=== PATIENT | male | born 1935 | race Caucasian/White ===

== ENCOUNTER 2016-07-09 07:45 | Emergency (ER) | payer OTHER ==
--- NOTE | 2016-07-09 09:37 | EDPHY ---
H & P Stated Complaint: Recent eye surgery and now w/ bleeding - Personal History Current Tetanus/Diphtheria Vaccine: Yes Current Tetanus Diphtheria and Acellular Pertussis (TDAP): Yes Tetanus Vaccine Date: 2005 - Medical/Surgical History Hx Asthma: No Hx Chronic Respiratory Disease: No Hx Diabetes: No Hx Cardiac Disease: Yes Hx Renal Disease: No Hx Cirrhosis: No Hx Alcoholism: No Hx HIV/AIDS: No Hx Splenectomy or Spleen Trauma: No Other PMH: Eye surgery w/ MD [facility] at [facility], CABG, Pacer - Social History Smoking Status: Never smoked HPI/ROS: CHIEF COMPLAINT: Bleeding postoperatively HISTORY OF PRESENT ILLNESS: bilateral blepharoplasty on July 03, [address] Castillo at [facility]. He reports no complaints until 2 days ago when he noted bleeding from the left eyelid. This is primarily anterior eyelid. At 1 point he noted 100 drops of blood at a time. There is no pulsatile flow. There is no visual complaint. No eye pain. No fevers or chills. No headaches or dizziness. He is primarily concerned about the bleeding. The right eye has no complaints. He mailed his physician's office and they informed him that he needs an appointment but does not have 1 at this time. He has no other associated complaints or modifying factors. REVIEW OF SYSTEMS: Ten systems reviewed and are negative unless otherwise noted in the HPI EXAMINATION General Appearance: Alert, no distress Head: normocephalic, atraumatic Eyes: Pupils equal and round. Surgical incisions bilateral eyelids without dehiscence. There is mild venous blood flow in the left inferior eyelid. Mild left conjunctival injection. No hyphema. No abscess. Visual jackson are intact. ENT, Mouth: Mucous membranes moist Neck: Normal inspection, supple, non-tender Respiratory: Lungs are clear to auscultation Cardiovascular: Regular rate and rhythm Neurological: A&O, nonfocal Skin: Warm and dry, no rash Extremities: Nontender, no pedal edema Psychiatric: Mood and affect normal DIFFERENTIAL DIAGNOSES: 1. Postoperative bleeding 2. incisional dehiscence MDM: 09:15 Postoperative bleeding in the left eye. Patient is well-appearing and in no acute distress. There does not appear to be any infection of the incision. Having difficulty viewing the internal suture line. I have put a page out to the surgeon and we are awaiting his call at this time. 09:50 I have re-evaluated the patient, he remains in no acute distress. We are still waiting for the surgeon's group to return our phone call at this time. 10:[address] Castillo regarding the patient's complaints and examination. He informed me that this is an expected postoperative timeline. He informed me that the internal upper eyelid incision has an absorbable suture and that he does not cauterize that, thus there is some bleeding expected. He recommends ice compresses, compress, rest and follow up in the office. He says that he will have his office contact the patient to set up definitive care. The patient and son at bedside are comfortable with this plan. He will be discharged home in stable condition. SUPERVISION: Independent evaluation with phone consultation of surgeon ( Bimal Sutherland) Constitutional: Initial Vital Signs Temperature (C) 36.8 C 07/09/16 07:50 Heart Rate 99 07/09/16 07:50 Respiratory Rate 18 07/09/16 07:50 Blood Pressure 194/119 H 07/09/16 07:50 O2 Sat (%) 97 07/09/16 07:50 O2 Delivery Mode Room Air Allergies/Adverse Reactions: succinylcholine [Succinylcholine] Allergy (Severe, Verified 02/07/12 18:03) Anaphylaxis Home Medications: Medication Instructions Recorded Amiodarone HCl [PACERONE 200 MG 200 mg PO BID 01/20/12 (RX)] Aspirin [Aspirin 81mg (OTC)] 81 mg PO DAILY 01/20/12 Atorvastatin Calcium [Lipitor 20 20 mg PO DAILY 01/20/12 mg (RX)] Carvedilol [Coreg (RX)] 6.25 mg PO BIDMEAL 01/20/12 Furosemide [Lasix 40 MG (RX)] 40 mg PO DAILY 01/20/12 Losartan Potassium [Cozaar 25 mg 25 mg PO DAILY 01/20/12 (RX)] Pharmacy Completed 01/20/2012- See 01/20/12 Note Potassium Chloride 10 meq PO DAILY 01/20/12 Medical Decision Making Other Provider: The patient was evaluated and managed by the physician accounting manager assistant controller. I have reviewed this chart and I agree with the findings and plan of care as documented , as indicated by my signature. I am the secondary supervising physician. ( Neena Hunt) Departure - Departure Disposition: Home, Routine, Self-Care Clinical Impression: Post-op bleeding, Postoperative complication Condition: Good Instructions: Postoperative Bleeding (ED) Additional Instructions: follow-up with surgeon as discussed. Emergency department precautions for worsening bleeding, fever, headache, eye pain. Referrals: NONE *PRIMARY CARE P,. [Primary Care Provider] - As per Instructions
[2016-07-09 09:56] VITALS: O2SAT 96
[2016-07-09 10:22] VITALS: BP 175/119; PULSE 86; RESP 15; TEMP 98.1
== END 2016-07-09 10:25 | disposition home or self-care (01) ==
DX: H59.3 Postprocedural hemorrhage, hematoma, and seroma of eye and adnexa following a procedure (principal); Z79.82 Long term (current) use of aspirin

== ENCOUNTER 2016-09-16 12:11 | Inpatient (IN) | payer OTHER ==
--- NOTE | 2016-09-16 13:29 | EDPHY ---
H & P Stated Complaint: Cough, fever, chills-6weeks ago [facility] Amox-sats 84% Time Seen by Provider: 09/16/16 13:18 HPI/ROS: CHIEF COMPLAINT: Cough, shortness of breath HISTORY OF PRESENT ILLNESS: The patient is a 80-year-old man with a history of CABG in 2011 as well as atrial fib post ablation not on blood thinners who comes to the emergency department complaining of shortness of breath, cough and fever. He states that he has had the symptoms for 2 months but they have significantly worsened over the last 3 days. 6 weeks ago use seen at the urgent care and started on amoxicillin. He had a negative flu swab at the time. He denies having any chest pain or abdominal pain. No vomiting. No diaphoresis. No edema. REVIEW OF SYSTEMS: Constitutional: denies: chills, fever, recent illness, recent injury EENTM: denies: blurred vision, double vision, nose congestion Respiratory: See HPI Cardiac: denies: chest pain, irregular heart rate, lightheadedness, palpitations Gastrointestinal/Abdominal: denies: abdominal pain, diarrhea, nausea, vomiting, blood streaked stools Genitourinary: denies: dysuria, frequency, hematuria, pain Musculoskeletal: denies: joint pain, muscle pain Skin: denies: lesions, rash, jaundice, bruising Neurological: denies: headache, numbness, paresthesia, tingling, dizziness, weakness Hematologic/Lymphatic: denies: blood clots, easy bleeding, easy bruising Immunologic/allergic: denies: HIV/AIDS, transplant EXAM: GENERAL: Well-appearing, well-nourished and in no acute distress. HEAD: Atraumatic, normocephalic. EYES: Pupils equal round and reactive to light, extraocular movements intact, sclera anicteric, conjunctiva are normal. ENT: TMs normal, nares patent, oropharynx clear without exudates. Moist mucous membranes. NECK: Normal range of motion, supple without lymphadenopathy or JVD. LUNGS: Bilateral lower lobe rhonchi HEART: Regular rate and rhythm without murmurs, rubs or gallops. ABDOMEN: Soft, nontender, normoactive bowel sounds. No guarding, no rebound. No masses appreciated. BACK: No CVA tenderness, no spinal tenderness, step-offs or deformities EXTREMITIES: Normal range of motion, no pitting or edema. No clubbing or cyanosis. NEUROLOGICAL: Cranial nerves II through XII grossly intact. Normal speech, normal gait. 5/5 strength, normal movement in all extremities, normal sensation PSYCH: Normal mood, normal affect. SKIN: Warm, dry, normal turgor, no visible rashes or lesions. Source: Patient Exam Limitations: No limitations - Personal History Current Tetanus/Diphtheria Vaccine: No Tetanus Vaccine Date: 2005 - Medical/Surgical History Hx Asthma: No Hx Chronic Respiratory Disease: No Hx Diabetes: No Hx Cardiac Disease: Yes Hx Renal Disease: No Hx Cirrhosis: No Hx Alcoholism: No Hx HIV/AIDS: No Hx Splenectomy or Spleen Trauma: No Other PMH: [place] surgery w/ [facility], CABG, Pacer. - Family History Significant Family History: No pertinent family hx - Social History Smoking Status: Never smoked Alcohol Use: Sober Drug Use: None Constitutional: Initial Vital Signs Temperature (C) 38.0 C 09/16/16 12:29 Heart Rate 97 09/16/16 12:29 Respiratory Rate 18 09/16/16 12:29 Blood Pressure 147/77 H 09/16/16 12:29 O2 Sat (%) 84 L 09/16/16 12:29 O2 Delivery Mode Room Air O2 (L/minute) 4 Allergies/Adverse Reactions: succinylcholine [Succinylcholine] Allergy (Severe, Verified 09/16/16 12:34) Anaphylaxis Home Medications: Medication Instructions Recorded Atorvastatin Calcium [Lipitor 20 20 mg PO DAILY 01/20/12 mg (RX)] Pharmacy Completed 01/20/2012- See 01/20/12 Note Tamsulosin HCl 09/16/16 Medical Decision Making - Diagnostics EKG Interpretation: An EKG obtained and was read and documented in trace view. Please see trace view for full reading and report. Sinus rhythm unchanged from previous, occasional paced rhythm Imaging: X-ray: chest x-ray was obtained. I viewed the images myself on the PACS system. My interpretation of the images is: Retrocardiac infiltrate. The radiologist interpretation is bronchitis versus retrocardiac infiltrate. ED Course/Re-evaluation: 3:15 p.m. we discussed the x-ray and lab results. I will start the patient on Levaquin. I discussed the case with Dr. Claribel Prince who will admit to the medical service. He meets criteria for sepsis but not severe sepsis. Differential Diagnosis: Partial list of the Differential diagnosis considered include but were not limited to; pneumonia, bronchitis, COPD, CHF and although unlikely based on the history and physical exam, I also considered acute coronary disease, dissection, pneumothorax, PE. - Data Points Laboratory Results: Laboratory Results 09/16/16 14:13 09/16/16 13:05 09/16/16 09/16/16 09/16/16 14:37 14:13 13:50 WBC 5.29 10^3/uL 10^3/uL (3.80-9.50) RBC 4.16 10^6/uL L 10^6/uL (4.40-6.38) Hgb 13.9 g/dL g/dL (13.7-17.5) Hct 40.7 % % (40.0-51.0) MCV 97.8 fL fL (81.5-99.8) MCH 33.4 pg pg (27.9-34.1) MCHC 34.2 g/dL g/dL (32.4-36.7) RDW 14.5 % % (11.5-15.2) Plt Count 113 10^3/uL L 10^3/uL (150-400) MPV 11.3 fL fL (8.7-11.7) Neut % (Auto) 72.1 % % (39.3-74.2) Lymph % (Auto) 16.1 % % (15.0-45.0) [place] % (Auto) 10.8 % % (4.5-13.0) Eos % (Auto) 0.0 % L % (0.6-7.6) Baso % (Auto) 0.6 % % (0.3-1.7) Nucleat RBC Rel Count 0.0 % % (0.0-0.2) Absolute Neuts (auto) 3.82 10^3/uL 10^3/uL (1.70-6.50) Absolute Lymphs (auto) 0.85 10^3/uL L 10^3/uL (1.00-3.00) Absolute Monos (auto) 0.57 10^3/uL 10^3/uL (0.30-0.80) Absolute Eos (auto) 0.00 10^3/uL L 10^3/uL (0.03-0.40) Absolute Basos (auto) 0.03 10^3/uL 10^3/uL (0.02-0.10) Absolute Nucleated RBC 0.00 10^3/uL 10^3/uL (0-0.01) Immature Gran % 0.4 % % (0.0-1.1) Immature Gran # 0.02 10^3/uL 10^3/uL (0.00-0.10) PT INR APTT D-Dimer VBG Lactic Acid Sodium Potassium Chloride Carbon Dioxide Anion Gap BUN Creatinine Estimated GFR Glucose Calcium Total Bilirubin Urine Color YELLOW Urine Appearance CLEAR Urine pH 6.0 (5.0-7.5) Ur Specific [place] 1.020 (1.002-1.030) Urine Protein 2+ H (NEGATIVE) Urine Ketones TRACE H (NEGATIVE) Urine Blood 1+ H (NEGATIVE) Urine Nitrate NEGATIVE (NEGATIVE) Urine Bilirubin NEGATIVE (NEGATIVE) Urine Urobilinogen NEGATIVE EU EU (0.2-1.0) Ur Leukocyte Esterase NEGATIVE (NEGATIVE) Urine RBC 1-3 /hpf /hpf (0-3) Urine WBC 1-3 /hpf /hpf (0-3) Ur Epithelial Cells NONE SEEN /lpf /lpf (NONE-1+) Urine Mucus TRACE /lpf /lpf (NONE-1+) Urine Glucose NEGATIVE (NEGATIVE) Influenza Typ A,B (DFA) NEGATIVE FOR FLU (NEGATIVE) 09/16/16 09/16/16 09/16/16 13:05 13:05 13:05 WBC RBC Hgb Hct MCV MCH MCHC RDW Plt Count MPV Neut % (Auto) Lymph % (Auto) [place] % (Auto) Eos % (Auto) Baso % (Auto) Nucleat RBC Rel Count Absolute Neuts (auto) Absolute Lymphs (auto) Absolute Monos (auto) Absolute Eos (auto) Absolute Basos (auto) Absolute Nucleated RBC Immature Gran % Immature Gran # PT 13.3 SEC SEC (12.0-15.0) INR 1.02 (0.83-1.16) APTT 23.5 SEC SEC (23.0-38.0) D-Dimer Pending VBG Lactic Acid 1.8 mmol/L mmol/L (0.7-2.1) Sodium Potassium Chloride Carbon Dioxide Anion Gap BUN Creatinine Estimated GFR Glucose Calcium Total Bilirubin Urine Color Urine Appearance Urine pH Ur Specific [place] Urine Protein Urine Ketones Urine Blood Urine Nitrate Urine Bilirubin Urine Urobilinogen Ur Leukocyte Esterase Urine RBC Urine WBC Ur Epithelial Cells Urine Mucus Urine Glucose Influenza Typ A,B (DFA) 09/16/16 09/16/16 13:05 12:41 WBC REJ RBC REJ Hgb REJ Hct REJ MCV REJ MCH REJ MCHC REJ RDW REJ Plt Count REJ MPV REJ Neut % (Auto) REJ Lymph % (Auto) REJ [place] % (Auto) REJ Eos % (Auto) REJ Baso % (Auto) REJ Nucleat RBC Rel Count REJ Absolute Neuts (auto) REJ Absolute Lymphs (auto) REJ Absolute Monos (auto) REJ Absolute Eos (auto) REJ Absolute Basos (auto) REJ Absolute Nucleated RBC REJ Immature Gran % REJ Immature Gran # REJ PT INR APTT D-Dimer VBG Lactic Acid Sodium 139 mEq/L mEq/L (134-144) Potassium 4.2 mEq/L mEq/L (3.5-5.2) Chloride 100 mEq/L mEq/L (97-110) Carbon Dioxide 25 mEq/l mEq/l (22-31) Anion Gap 14 mEq/L mEq/L (8-16) BUN 15 mg/dL mg/dL (7-23) Creatinine 1.2 mg/dL mg/dL (0.7-1.3) Estimated GFR 59 Glucose 116 mg/dL H mg/dL (70-100) Calcium 9.6 mg/dL mg/dL (8.5-10.4) Total Bilirubin 1.2 mg/dL mg/dL (0.1-1.4) Urine Color Urine Appearance Urine pH Ur Specific [place] Urine Protein Urine Ketones Urine Blood Urine Nitrate Urine Bilirubin Urine Urobilinogen Ur Leukocyte Esterase Urine RBC Urine WBC Ur Epithelial Cells Urine Mucus Urine Glucose Influenza Typ A,B (DFA) Medications Given: Discontinued Medications Levofloxacin/Dextrose (Levaquin 750 Mg (Premix)) 150 mls @ 100 mls/hr IV EDNOW ONE PRN Reason: Protocol Stop: 09/16/16 16:15 Last Admin: 09/16/16 15:06 Dose: 150 mls Departure - Departure Disposition: [facility] Clinical Impression: Pneumonia Qualifiers: Pneumonia type: due to unspecified organism Laterality: left Lung location: lower lobe of lung Qualified Code(s): J18.1 - Lobar pneumonia, unspecified organism Sepsis Qualifiers: Sepsis type: sepsis due to unspecified organism Qualified Code(s): A41.9 - Sepsis, unspecified organism Condition: Fair
[2016-09-16 13:41] LABS: ANION GAP 14 mEq/L (8-16); BILIRUBIN,TOTAL 1.2 mg/dL (0.1-1.4); CALCIUM 9.6 mg/dL (8.5-10.4); CARBON DIOXIDE 25 mEq/l (22-31); CHLORIDE 100 mEq/L (97-110); CREATININE 1.2 mg/dL (0.7-1.3); GLOMERULAR FILTRATION RATE 59; GLUCOSE 116 mg/dL (70-100); POTASSIUM 4.2 mEq/L (3.5-5.2); SODIUM 139 mEq/L (134-144)
[2016-09-16 13:44] LABS: INR 1.02 (0.83-1.16); PROTIME(PATIENT) 13.3 SEC (12.0-15.0)
[2016-09-16 13:45] LABS: APTT 23.5 SEC (23.0-38.0)
--- NOTE | 2016-09-16 13:48 | CPEKG ---
Heart Rate: 84 RR Interval: 714 P-R Interval: 152 QRSD Interval: 90 QT Interval: 360 QTC Interval: 426 P [place]: -40 QRS [place]: 31 T Wave [place]: 75 EKG Severity - NORMAL ECG - EKG Impression: SINUS RHYTHM EKG Impression: Unchanged from previous Electronically Signed By: Darius Méndez 16-Sep-2016 13:58:43
[2016-09-16 14:32] LABS: % IMMATURE GRANULYOCYTES 0.4 % (0.0-1.1); ABSOLUTE IMMATURE GRANULOCYTES 0.02 10^3/uL (0.00-0.10); ADD DIFF? NO; ADD MORPH? NO; ADD SCAN? NO; ATYPICAL LYMPHOCYTE FLAG 80 (0-99); FRAGMENT RBC FLAG 0 (0-99); HEMATOCRIT 40.7 % (40.0-51.0); HEMOGLOBIN 13.9 g/dL (13.7-17.5); LEFT SHIFT FLG 0 (0-99); LIPEMIA HEMOLYSIS FLAG 90 (0-99); MEAN CELL HEMOGLOBIN 33.4 pg (27.9-34.1); MEAN CELL HEMOGLOBIN CONCENTR. 34.2 g/dL (32.4-36.7); MEAN CELL VOLUME 97.8 fL (81.5-99.8); MEAN PLATELET VOLUME 11.3 fL (8.7-11.7); PLATELET CLUMPS FLAG 0 (0-99); PLATELET COUNT 113 10^3/uL (150-400); RED BLOOD CELL COUNT 4.16 10^6/uL (4.40-6.38); RED CELL DISTRIBUTION WIDTH 14.5 % (11.5-15.2)
[2016-09-16 14:51] LABS: COLOR YELLOW; LEUKOCYTE ESTERASE,URINE NEGATIVE (NEGATIVE); NITRITE,URINE NEGATIVE (NEGATIVE)
[2016-09-16 15:02] LABS: MUCUS TRACE /lpf (NONE-1+)
[2016-09-16] MEDS ORDERED: ONDANSETRON DISINTEGRATING 4 MG TAB PO PRN (16:34)
[2016-09-16] MEDS ORDERED: ALBUTEROL 60 PUFFS/8 GM MDI IH PRN (16:34)
[2016-09-16] MEDS ORDERED: ONDANSETRON 4 MG/2 ML VIAL IVP PRN (16:34)
[2016-09-16] MEDS ORDERED: ACETAMINOPHEN 650 MG/20.3 ML UDCUP PO PRN (17:40)
--- NOTE | 2016-09-16 17:46 | GHP ---
[f rep st] HISTORY AND PHYSICAL DATE OF ADMISSION: 09/16/2016 CHIEF COMPLAINT: Fever, cough, shortness of breath. HISTORY OF PRESENT ILLNESS: The patient is a 80-year-old male with a history of coronary artery disease, prior CABG, and atrial fibrillation, status post ablation, who presents to the emergency department with a 6 to 8-week history of upper respiratory symptoms. He reports developing cold symptoms including runny nose, cough, and congestion approximately 8 weeks ago. He was seen in urgent care 6 weeks ago, at which time he was treated with amoxicillin. He felt a little better after completing this course of antibiotics, but then his symptoms worsened. He developed fevers and chills over the past several days, along with shortness of breath and increasing productive cough. He denies sick contacts. 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 He denies any chest pain, orthopnea, paroxysmal nocturnal dyspnea or lower extremity edema. In the emergency department, he presented with an oxygen saturation of 84% on room air, has required 4-5 L of oxygen, and his imaging was concerning for retrocardiac infiltrate. He was given 750 mg of IV Levaquin after blood cultures were drawn. He is admitted to the hospital for further management. PAST MEDICAL/SURGICAL HISTORY: 1. Coronary artery disease, status post CABG in 2011. 2. Presence of pacemaker. 3. Atrial fibrillation, status post ablation and left atrial appendage ligation , currently not anticoagulated, managed on daily aspirin. 4. Recent cataract surgery in August 2016. MEDICATIONS: [facility] see [facility] for complete updated outpatient medication list. ALLERGIES: Succinylcholine. 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 He is a lifetime nonsmoker. He reports daily alcohol use, approximately 2 glasses of wine per day. He denies any history of alcohol withdrawal symptoms. He denies drug use. He lives with his son, and is currently estranged from his . FAMILY HISTORY: Reviewed and noncontributory. REVIEW OF SYSTEMS: A 10-point review of systems was performed, and is negative except as per HPI. OBJECTIVE: VITAL SIGNS: Temperature is 36.8, blood pressure 147/77, heart rate 97, respiratory rate 18. He is 84% on room air, 93% on 4.5 L of oxygen. GENERAL: The patient is awake, alert, and oriented, in no acute distress. HEENT: Head is atraumatic, normocephalic. Pupils equal, round, and reactive to light. Sclerae are noninjected. His eyes are a bit teary. Oropharynx is clear. Mucous membranes are moist. NECK: Supple. There is no JVD. HEART: Regular rate and rhythm. LUNGS: Reveal decreased air exchange, with scattered bilateral end-expiratory wheezes. ABDOMEN: Soft, nondistended, nontender. Normoactive bowel sounds. EXTREMITIES: Without cyanosis, clubbing, or edema. NEUROLOGIC: Grossly nonfocal. LABORATORY DATA: CBC reveals a normal white count. INR is normal at 1. A D- dimer is pending. Lactic acid is 1.8. Chemistry panel shows normal electrolytes. Creatinine of 1.2, glucose 116. Urinalysis shows 2+ protein, trace ketones, 1+ blood, negative nitrites, negative leukocytes. Influenza is negative. Chest x-ray shows cardiomegaly, with findings consistent with possible pulmonary hypertension, but no pulmonary edema. There is also questionable new retrocardiac infiltrate. The chest x-ray is personally reviewed by myself, and I do notice a streaky pattern in the retrocardiac space. EKG shows sinus rhythm, with no ST-segment or T-wave changes concerning for ischemia or PE. I do note an S wave in lead I, and a Q wave in lead III, though his T waves are upright in lead III. ASSESSMENT AND PLAN: The patient is a 80-year-old male, with an 8-week history of upper respiratory symptoms, presents to the emergency department with acute hypoxemic respiratory failure, was admitted for treatment of suspected pneumonia. 1. Acute hypoxemic respiratory failure secondary to PNA vs bronchitis. With his fever, cough, and chest x-ray findings, will continue Levaquin. He does meet SIRS criteria, though he does not meet criteria for severe sepsis with a normal lactate. Will add prednisone given his expiratory wheezes. With his history of occupational smoke exposure, I have some suspicion for underlying lung disease, and recommend he follow up with outpatient Pulmonology at discharge for baseline PFT's. He has some EKG findings which could be consistent with PE, including an S wave in lead I and a Q wave in lead III. Overall, his Wells score is low risk at 1.5. Will check a D-dimer, and if this is elevated, proceed to CT pulmonary angiogram to rule out PE. Influenza is negative. He will be given scheduled DuoNeb's, along with antitussive therapy and supportive care. We will wean his oxygen as able, though he may need home oxygen at discharge. 2. Coronary artery disease, status post CABG. He is chest pain-free. We will continue him on his aspirin and statin once his medication reconciliation is completed. 3. History of atrial fibrillation, status post ablation and left atrial appendage ligation. He is in sinus rhythm here, is not anticoagulated. He will be continued on his aspirin. 4. Deep vein thrombosis prophylaxis. Lovenox. CODE STATUS: Patient is full code. DISPOSITION: Patient is admitted to inpatient status, as he will likely require greater than 48 hours' hospitalization for ongoing management of his acute hypoxemic respiratory failure. /[id number]/MODL MTDD
[2016-09-16] MEDS: BENZONATATE 100 MG CAP PO PRN (17:59)
[2016-09-16] MEDS: predniSONE 20 MG TAB PO SCH (17:59)
[2016-09-16] MEDS ORDERED: NS 500 ML IV ONE (18:49)
[2016-09-16] MEDS ORDERED: IOPAMIDOL (ISOVUE 370) 100 ML BTL IV ONE (19:46)
[2016-09-16] MEDS: NS 1,000 ML IV SCH (20:24)
[2016-09-16] MEDS: IPRATROPIUM/ALBUTEROL 3 ML DEYVIAL IH SCH (20:51)
[2016-09-16] MEDS: guaiFENesin 600 MG TAB.ER PO SCH (21:07)
[2016-09-16] MEDS: POLYMYXIN B SULFATE/TMP 10 ML OPHT.BTL LEFTEYE SCH (21:38)
[2016-09-16] MEDS: prednisoLONE ACET 1% 5 ML OPHT.BTL LEFTEYE SCH (21:38)
[2016-09-16] MEDS: KETOROLAC 0.4% LEFTEYE SCH (21:39)
[2016-09-17] MEDS: IPRATROPIUM/ALBUTEROL 3 ML DEYVIAL IH SCH ×4 (04:56→20:12)
[2016-09-17 05:35] LABS: % IMMATURE GRANULYOCYTES 0.4 % (0.0-1.1); ABSOLUTE IMMATURE GRANULOCYTES 0.02 10^3/uL (0.00-0.10); ADD DIFF? NO; ADD MORPH? NO; ADD SCAN? NO; ATYPICAL LYMPHOCYTE FLAG 70 (0-99); FRAGMENT RBC FLAG 0 (0-99); HEMATOCRIT 39.8 % (40.0-51.0); HEMOGLOBIN 13.6 g/dL (13.7-17.5); LEFT SHIFT FLG 0 (0-99); LIPEMIA HEMOLYSIS FLAG 90 (0-99); MEAN CELL HEMOGLOBIN 33.2 pg (27.9-34.1); MEAN CELL HEMOGLOBIN CONCENTR. 34.2 g/dL (32.4-36.7); MEAN CELL VOLUME 97.1 fL (81.5-99.8); MEAN PLATELET VOLUME 10.8 fL (8.7-11.7); PLATELET CLUMPS FLAG 10 (0-99); PLATELET COUNT 105 10^3/uL (150-400); RED CELL DISTRIBUTION WIDTH 14.1 % (11.5-15.2)
[2016-09-17] MEDS: NS 1,000 ML IV SCH ×2 (05:44→17:33)
[2016-09-17] MEDS: POLYMYXIN B SULFATE/TMP 10 ML OPHT.BTL LEFTEYE SCH ×3 (08:15→21:07)
[2016-09-17] MEDS: KETOROLAC 0.4% LEFTEYE SCH ×3 (09:05→20:51)
[2016-09-17] MEDS: ENOXAPARIN 40 MG/0.4 ML SYR SC SCH (09:06)
[2016-09-17] MEDS: TAMSULOSIN HCL 0.4 MG CAP PO SCH (09:07)
[2016-09-17] MEDS: predniSONE 20 MG TAB PO SCH (09:07)
[2016-09-17] MEDS: ATORVASTATIN CALCIUM 20 MG TAB PO SCH (09:07)
[2016-09-17] MEDS: ASPIRIN 81 MG CHEWABLE TAB PO SCH (09:07)
[2016-09-17] MEDS: guaiFENesin 600 MG TAB.ER PO SCH ×2 (09:07→20:49)
[2016-09-17] MEDS: prednisoLONE ACET 1% 5 ML OPHT.BTL LEFTEYE SCH ×3 (09:08→20:59)
--- NOTE | 2016-09-17 13:16 | HOSPPROG ---
Hospitalist Progress Note Assessment/Plan: 80y male with extended URI now presenting with SOB and cough. This is my first encounter, chart reviewed. #PNA CXR personally reviewed Responding well to abx and steriods Cont current treatment #Acute hypoxemic resp failure on 2L cont aggressive care titrate O2 off #Hx CAD CABG x 4 years no cp #Hx afib ablation NSR #Dispo unclear, 1-2 days pending recovery for PNA rec establish PCP Subjective: Feeling better today. Still coughing and SOB. NO chest pain. No other issues. Objective: Vital Signs Temp Pulse Resp BP Pulse Ox 36.6 C 80 16 152/86 H 92 09/17/16 11:13 09/17/16 11:13 09/17/16 11:13 09/17/16 11:13 09/17/16 11:13 Microbiology 09/17/16 05:17 - Final Sputum, Expectorated Laboratory Results 09/17/16 04:47 09/16/16 09/17/16 09/18/16 05:59 05:59 05:59 Intake Total 3472 Output Total 1000 225 Balance 2472 -225 PT 13.3 SEC (12.0-15.0) 09/16/16 13:05 INR 1.02 (0.83-1.16) 09/16/16 13:05 - Physical Exam Constitutional: no apparent distress, appears nourished, not in pain Eyes: PERRL, anicteric sclera, EOMI Ears, Nose, Mouth, Throat: moist mucous membranes, hearing normal, ears appear normal Cardiovascular: No JVD, No tachycardia, No bradycardia Respiratory: no respiratory distress, reduced air movement, rhonchi Gastrointestinal: No tenderness, No ascites, No guarding Skin: warm, normal color, No erythema Musculoskeletal: full muscle strength, normal joint ROM, no joint effusions Neurologic: AAOx3 Psychiatric: interacting appropriately, not anxious, not encephalopathic ICD10 Worksheet Patient Problems: Problems Problem Status Onset Pneumonia Acute Sepsis Acute
[2016-09-18] MEDS: TEMAZEPAM 15 MG CAP PO PRN (00:34)
[2016-09-18] MEDS: BENZONATATE 100 MG CAP PO PRN ×2 (00:35→04:09)
[2016-09-18] MEDS: HYDROcodone/CPM TUSSIONEX 5 ML UDSYR PO PRN (03:28)
[2016-09-18] MEDS: IPRATROPIUM/ALBUTEROL 3 ML DEYVIAL IH SCH ×4 (06:01→20:56)
[2016-09-18] MEDS: guaiFENesin 600 MG TAB.ER PO SCH ×2 (08:12→22:14)
[2016-09-18] MEDS: predniSONE 20 MG TAB PO SCH (08:13)
[2016-09-18] MEDS: TAMSULOSIN HCL 0.4 MG CAP PO SCH (08:15)
[2016-09-18] MEDS: ATORVASTATIN CALCIUM 20 MG TAB PO SCH (08:17)
[2016-09-18] MEDS: ENOXAPARIN 40 MG/0.4 ML SYR SC SCH (08:18)
[2016-09-18] MEDS: prednisoLONE ACET 1% 5 ML OPHT.BTL LEFTEYE SCH ×3 (08:32→22:14)
[2016-09-18] MEDS: KETOROLAC 0.4% LEFTEYE SCH ×3 (08:32→22:14)
[2016-09-18] MEDS: POLYMYXIN B SULFATE/TMP 10 ML OPHT.BTL LEFTEYE SCH ×3 (08:33→22:14)
[2016-09-18] MEDS: ASPIRIN 81 MG CHEWABLE TAB PO SCH (10:25)
--- NOTE | 2016-09-18 10:47 | HOSPPROG ---
Hospitalist Progress Note Assessment/Plan: 80y male with extended URI now presenting with SOB and cough. #PNA worsening symptoms today CTA stable get repeat CXR conts abx and steriods #Acute hypoxemic resp failure increased O2 needs last evening cont aggressive care titrate O2 off #Hx CAD CABG x 4 years no cp #Hx afib ablation NSR #Dispo unclear, 1-2 days pending recovery for PNA rec establish PCP cont evaluation, CXR Subjective: Very tired today. Having significant coughing. Didn't sleep well last night. Objective: Vital Signs Temp Pulse Resp BP Pulse Ox 37.7 C 88 16 138/71 H 92 09/18/16 07:16 09/18/16 10:03 09/18/16 10:03 09/18/16 08:47 09/18/16 10:03 Microbiology 09/17/16 05:17 - Final Sputum, Expectorated Laboratory Results 09/17/16 04:47 09/17/16 09/18/16 09/19/16 05:59 05:59 05:59 Intake Total 3472 2366 400 Output Total 1000 575 100 Balance 2472 1791 300 PT 13.3 SEC (12.0-15.0) 09/16/16 13:05 INR 1.02 (0.83-1.16) 09/16/16 13:05 - Physical Exam Constitutional: appears nourished, uncomfortable Eyes: PERRL, anicteric sclera Ears, Nose, Mouth, Throat: moist mucous membranes, hearing normal Cardiovascular: No JVD, No edema Respiratory: no respiratory distress, reduced air movement, rhonchi Gastrointestinal: No tenderness, No ascites, No guarding Skin: warm, normal color Musculoskeletal: no joint effusions, generalized weakness Neurologic: AAOx3 Psychiatric: not anxious, not encephalopathic, thought process linear ICD10 Worksheet Patient Problems: Problems Problem Status Onset Transitional Care Acute Pneumonia Acute Sepsis Acute
[2016-09-18] MEDS ORDERED: FUROSEMIDE 40 MG/4 ML VIAL IVP ONE (15:15)
[2016-09-19] MEDS: BENZONATATE 100 MG CAP PO PRN ×2 (00:08→08:31)
[2016-09-19] MEDS: HYDROcodone/CPM TUSSIONEX 5 ML UDSYR PO PRN (00:08)
[2016-09-19] MEDS: IPRATROPIUM/ALBUTEROL 3 ML DEYVIAL IH SCH ×4 (05:22→21:09)
[2016-09-19 06:06] LABS: HEMATOCRIT 35.4 % (40.0-51.0); HEMOGLOBIN 12.1 g/dL (13.7-17.5); MEAN CELL HEMOGLOBIN 33.2 pg (27.9-34.1); MEAN CELL HEMOGLOBIN CONCENTR. 34.2 g/dL (32.4-36.7); MEAN CELL VOLUME 97.3 fL (81.5-99.8); RED BLOOD CELL COUNT 3.64 10^6/uL (4.40-6.38); RED CELL DISTRIBUTION WIDTH 14.1 % (11.5-15.2)
[2016-09-19 06:27] LABS: ANION GAP 11 mEq/L (8-16); CALCIUM 8.2 mg/dL (8.5-10.4); CARBON DIOXIDE 22 mEq/l (22-31); CHLORIDE 105 mEq/L (97-110); CREATININE 1.1 mg/dL (0.7-1.3); GLOMERULAR FILTRATION RATE > 60; GLUCOSE 91 mg/dL (70-100); POTASSIUM 3.6 mEq/L (3.5-5.2); SODIUM 138 mEq/L (134-144)
[2016-09-19] MEDS ORDERED: FUROSEMIDE 40 MG/4 ML VIAL IVP ONE (08:20)
[2016-09-19] MEDS: POLYMYXIN B SULFATE/TMP 10 ML OPHT.BTL LEFTEYE SCH ×3 (08:26→21:24)
[2016-09-19] MEDS: prednisoLONE ACET 1% 5 ML OPHT.BTL LEFTEYE SCH ×3 (08:27→21:20)
[2016-09-19] MEDS: KETOROLAC 0.4% LEFTEYE SCH ×3 (08:27→21:23)
[2016-09-19] MEDS: ENOXAPARIN 40 MG/0.4 ML SYR SC SCH (08:29)
[2016-09-19] MEDS: guaiFENesin 600 MG TAB.ER PO SCH ×2 (08:31→21:19)
[2016-09-19] MEDS: ASPIRIN 81 MG CHEWABLE TAB PO SCH (08:31)
[2016-09-19] MEDS: TAMSULOSIN HCL 0.4 MG CAP PO SCH (08:31)
[2016-09-19] MEDS: ATORVASTATIN CALCIUM 20 MG TAB PO SCH (08:31)
[2016-09-19] MEDS: predniSONE 20 MG TAB PO SCH (08:31)
--- NOTE | 2016-09-19 14:36 | HOSPPROG ---
Hospitalist Progress Note Assessment/Plan: 80y male with extended URI now presenting with SOB and cough. #PNA better today CTA stable cont support care conts abx and steriods #Acute hypoxemic resp failure increased O2 needs cont aggressive care titrate O2 off #Hx CAD CABG x 4 years no cp fluid overload, better lasix x2 #Hx afib ablation NSR #Dispo unclear, 1-2 days pending recovery for PNA rec establish PCP Subjective: Feeling better today. Eager to go home. Up walking safely. Objective: Vital Signs Temp Pulse Resp BP Pulse Ox 36.7 C 92 18 127/74 H 90 L 09/19/16 11:22 09/19/16 11:22 09/19/16 11:22 09/19/16 11:22 09/19/16 11:22 Microbiology 09/17/16 05:17 - Final Sputum, Expectorated Sputum Culture - Final Laboratory Results 09/19/16 05:29 09/19/16 05:29 09/18/16 09/19/16 09/20/16 05:59 05:59 05:59 Intake Total 2366 1350 Output Total 575 950 750 Balance 1791 400 -750 PT 13.3 SEC (12.0-15.0) 09/16/16 13:05 INR 1.02 (0.83-1.16) 09/16/16 13:05 - Physical Exam Constitutional: no apparent distress, not in pain Eyes: PERRL, anicteric sclera Ears, Nose, Mouth, Throat: moist mucous membranes, ears appear normal Cardiovascular: regular rate and rhythym, No JVD Respiratory: no respiratory distress, reduced air movement, rhonchi Gastrointestinal: normoactive bowel sounds, No tenderness, No ascites Skin: warm, normal color, No erythema Musculoskeletal: full muscle strength, normal joint ROM, no joint effusions Neurologic: AAOx3 Psychiatric: interacting appropriately, not anxious, not encephalopathic ICD10 Worksheet Patient Problems: Problems Problem Status Onset Transitional Care Acute Pneumonia Acute Sepsis Acute
[2016-09-19] MEDS ORDERED: DILTIAZEM 125 MG in D5W 125 ML IV SCH (19:00)
[2016-09-19] MEDS ORDERED: DILTIAZEM 25 MG/5 ML VIAL IVP ONE (19:00)
--- NOTE | 2016-09-19 19:49 | CPEKG ---
Heart Rate: 162 RR Interval: 370 QRSD Interval: 94 QT Interval: 300 QTC Interval: 493 P Bowie: 0 QRS Bowie: 52 T Wave Bowie: -16 EKG Severity - ABNORMAL ECG - EKG Impression: SUPRAVENTRICULAR TACHYCARDIA EKG Impression: BORDERLINE INFERIOR Q WAVES EKG Impression: REPOLARIZATION ABNORMALITY, PROB RATE RELATED Electronically Signed By: Emerson Craig 20-Sep-2016 06:52:37
[2016-09-20] MEDS: IPRATROPIUM/ALBUTEROL 3 ML DEYVIAL IH SCH ×4 (05:12→21:55)
[2016-09-20] MEDS: TAMSULOSIN HCL 0.4 MG CAP PO SCH (09:24)
[2016-09-20] MEDS: ASPIRIN 81 MG CHEWABLE TAB PO SCH (09:24)
[2016-09-20] MEDS: ATORVASTATIN CALCIUM 20 MG TAB PO SCH (09:24)
[2016-09-20] MEDS: predniSONE 20 MG TAB PO SCH (09:24)
[2016-09-20] MEDS: guaiFENesin 600 MG TAB.ER PO SCH ×2 (09:25→21:19)
[2016-09-20] MEDS: ENOXAPARIN 40 MG/0.4 ML SYR SC SCH (09:33)
[2016-09-20] MEDS: POLYMYXIN B SULFATE/TMP 10 ML OPHT.BTL LEFTEYE SCH ×3 (09:53→22:09)
[2016-09-20] MEDS: KETOROLAC 0.4% LEFTEYE SCH ×3 (09:53→22:08)
[2016-09-20] MEDS: prednisoLONE ACET 1% 5 ML OPHT.BTL LEFTEYE SCH ×3 (09:53→22:09)
[2016-09-20] MEDS: DILTIAZEM CD 120 MG CAP PO SCH (12:39)
--- NOTE | 2016-09-20 16:48 | HOSPPROG ---
Hospitalist Progress Note Assessment/Plan: 80y male new to my care with # paroxysmal SVT with history of atrial fibrillation status post ablation and pacemaker - I discussed case with Dr. Emerson Contreras of cardiology will see the patient in consultation - DC IV diltiazem - start oral diltiazem - will defer starting anticoagulation to Dr. Contreras # community-acquired pneumonia better today CTA stable cont support care cont levofloxacin day 4. And prednisone #Acute hypoxemic resp failure ( improving) #Hx CAD CABG x 4 years no cp fluid overload, better lasix x2 #Hx afib ablation NSR #Dispo unclear, 1-2 days pending recovery for PNA rec establish PCP Subjective: denies fevers or chills. denies palpitations or chest pain. improving shortness of breath Objective: Vital Signs Temp Pulse Resp BP Pulse Ox 36.6 C 86 22 H 127/72 H 92 09/20/16 12:00 09/20/16 12:39 09/20/16 12:00 09/20/16 12:39 09/20/16 12:00 Laboratory Results 09/19/16 05:29 09/19/16 05:29 09/19/16 09/20/16 09/21/16 05:59 05:59 05:59 Intake Total 1350 2096 850 Output Total 950 2750 125 Balance 400 -654 725 PT 13.3 SEC (12.0-15.0) 09/16/16 13:05 INR 1.02 (0.83-1.16) 09/16/16 13:05 I visualized and personally interpreted the EKG done 09/19/2016 showing SVT - Physical Exam Constitutional: no apparent distress, appears nourished, not in pain Ears, Nose, Mouth, Throat: moist mucous membranes, hearing normal, ears appear normal, no oral mucosal ulcers Cardiovascular: regular rate and rhythym, no murmur, rub, or gallop Respiratory: no respiratory distress, reduced air movement, No expiratory wheeze , No bronchial breath sounds Gastrointestinal: normoactive bowel sounds, soft, non-tender abdomen, no palpable masses, No guarding, No rebound Neurologic: AAOx3, sensation intact bilaterally ICD10 Worksheet Patient Problems: Problems Problem Status Onset Transitional Care Acute Pneumonia Acute Sepsis Acute
[2016-09-20] MEDS: TEMAZEPAM 15 MG CAP PO PRN ×2 (22:28→23:38)
[2016-09-20] MEDS: BENZONATATE 100 MG CAP PO PRN (22:29)
--- NOTE | 2016-09-20 23:04 | ECHO ---
[id number] + + [address] : : [place] [address] : : [phone] + + Adult Echocardiographic Report + + :Name: RIDGE MIDDLETON CStudy Date: 09/20/2016 09:36 AM : : Hospital Admission Number: [id number] : :: 1935 Gender: Male Height: 71 in : :Age: 80 yrs Race: WH Weight: 182 lb : :Reason For Study: Eval LV Fx : : BSA: 2.0 meters2: :History: SVT, Now resolved, Hx of Stents, Pacemaker, Mitral : :Valve repair. : + + MMode/2D Measurements \T\ Calculations IVSd: 1.5 cm LVIDd: 4.3 cm FS: 36.8 % Ao root diam: 3.6 cm LVPWd: 1.3 cm LVIDs: 2.7 cm EDV(Teich): 83.4 ml ACS: 2.4 cm ESV(Teich): 27.5 ml LA dimension: 4.4 cm EF(Teich): 67.0 % Normal Measurement Values: + + :LVIDd (3.5-5.7cm) IVSd (0.6-1.1cm) LVPWd (0.6-1.1cm) Aortic Root (2.0-3.7cm)Left Atrium (1.5-4.0cm): :LV Vol(d) (76-115ml) LV Vol(s) (29-48ml) Ejec Fraction (50-65%)PV Mohan (0.6- 1.2m/s) TV Mohan (0.4-1.0m/s) : :MV E Mohan (0.8-1.0m/s)MV A Mohan (0.3-1.0m/s)LVOT Mohan (0.7-1.2m/s) Asc Ao Mohan ( 0.9-1.8m/s) : + + Doppler Measurements \T\ Calculations MV E max mohan: MV V2 max: MV P1/2t max mohan: Ao V2 max: 160.1 cm/sec 171.0 cm/sec 167.2 cm/sec 116.7 cm/sec MV max PG: MV P1/2t: 80.3 msec Ao max P.7 mmHg MVA(P1/2t): 2.7 cm2 5.5 mmHg MV V2 mean: MV dec slope: 118.7 cm/sec MV mean P.6 cm/sec2 6.1 mmHg MV V2 VTI: 42.5 cm LV V1 max: PA V2 max: TR max mohan: 77.9 cm/sec 81.4 cm/sec 287.8 cm/sec LV V1 max PG: PA max PG: TR max P.1 mmHg 2.4 mmHg 2.7 mmHg RAP systole: 5.0 mmHg RVSP(TR): 38.1 mmHg Left Ventricle The left ventricle is normal in size. There is moderate concentric left ventricular hypertrophy. The left ventricular ejection fraction is normal. There is Doppler evidence for diastolic dysfunction. Ejection Fraction = 67%. Right Ventricle There is a pacemaker lead in the right ventricle. The right ventricle is normal in size and function. Atria The left atrium is mildly dilated. The right atrium is mildly dilated. Mitral Valve An annuloplasty ring is noted in the mitral position. The PMVL is fixed post repair. The mitral valve leaflets appear thickened, but open well. The posterior mitral leaflet is thickened and fixed consistent with prior mitral repair surgery. There is no mitral valve stenosis. There is mild mitral regurgitation. Tricuspid Valve Normal tricuspid valve. There is mild tricuspid regurgitation. Right ventricular systolic pressure is 38mmHg. There is Doppler evidence for mild pulmonary hypertension. Aortic Valve The aortic valve is normal in structure and function. The aortic valve is trileaflet. There is no aortic stenosis. There is no aortic insufficiency. Pulmonic Valve The pulmonic valve is normal in structure and function. There is no pulmonic valvular stenosis. There is no pulmonic valvular regurgitation. Great Vessels The aortic root is normal size. Pericardium/Pleural There is no pericardial effusion. Conclusion A complete two-dimensional transthoracic echocardiogram was performed (2D, M-mode, Doppler and color flow Doppler). The left ventricular ejection fraction is normal. There is Doppler evidence for diastolic dysfunction. Ejection Fraction = 67%. There is a pacemaker lead in the right ventricle. An annuloplasty ring is noted in the mitral position. The PMVL is fixed post repair. There is mild mitral regurgitation. There is mild tricuspid regurgitation. The aortic valve is normal in structure and function. The aortic valve is trileaflet. There is no pericardial effusion. There is moderate concentric left ventricular hypertrophy. Right ventricular systolic pressure is 38mmHg. There is Doppler evidence for mild pulmonary hypertension. The left atrium is mildly dilated. Final Reading Physician: Ross Contreras electronically signed on 09/20/2016 11:02 PM Ordering Physician: Harini De La Vega Referring Physician: Ross Contreras Performed By: Raymond Moise, KULWANTCS
--- NOTE | 2016-09-20 23:50 | GCON ---
[f rep st] CONSULTATION CARDIOLOGY CONSULTATION. DATE OF CONSULTATION: 09/20/2016 INDICATION FOR CONSULTATION: New onset of supraventricular tachycardia consistent with atrial flutter. HISTORY OF PRESENT ILLNESS: The patient is a pleasant 80-year-old gentleman well known to my cardiology practice at [facility] in the setting of a history of nonischemic cardiomyopathy; coronary artery disease, status post CABG in 2011; history of mitral valve annuloplasty in 2011; atrial fibrillation, status post Maze procedure and surgical left atrial appendage ligation; and a history of sick sinus syndrome, status post permanent pacemaker , who was in his usual state of health about 8 weeks ago when he developed upper respiratory symptoms. He continued to have increasing cough which had made some gradual improvements but became steadily worse. The day prior to his admission, on September 16, 2016, he developed fevers and chills, increasing shortness of breath, and increasing productive cough. These symptoms prompted him to seek medical attention at [facility] Emergency Department. Upon his admission, he was found to be in respiratory distress with oxygen saturation of 84% on room air requiring 4-5 L of oxygen. Chest x- ray demonstrated findings consistent with infiltrate consistent with pneumonia. He was started on IV antibiotics, and blood cultures were obtained. He was admitted to the hospital service for further management of his acute respiratory status with hypoxemic respiratory failure and pneumonia. In the evening of September 19, he developed a supraventricular tachycardia with rates between 160 and 170 beats per minute. He was symptomatic with this. He states he felt his body "rocking." No complaints of near-syncope or syncope. No complaints of chest pain, chest pressure, or shortness of breath. He was started on a diltiazem drip and ultimately converted back to normal sinus rhythm. I spoke with Dr. Tom Gardner earlier today and planned for discontinuation of IV diltiazem and conversion to oral diltiazem. Currently, at the time of my exam, he is resting comfortably. He is hemodynamically stable, in sinus rhythm. PAST MEDICAL HISTORY: 1. Nonischemic cardiomyopathy. 2. History of coronary artery disease, status post CABG in 2011. 3. History of mitral valve annuloplasty, 2011. 4. History of atrial fibrillation, status post surgical maze procedure with left atrial appendage ligation. 5. History of sick sinus syndrome, status post permanent pacemaker implantation. 6. History of PFO closure. 7. Hyperlipidemia. 8. Hypertension. 9. Mild pulmonary hypertension. SOCIAL HISTORY: He is . He is a lifelong nonsmoker. FAMILY HISTORY: No family history of premature coronary artery disease. MEDICATIONS ON ADMISSION: Include: 1. Aspirin 81 mg daily. 2. Lipitor 20 mg daily. 3. Tamsulosin 0.4 mg daily. ALLERGIES TO MEDICATIONS: Succinylcholine. PHYSICAL EXAMINATION: VITAL SIGNS: Blood pressure 129/76, heart rate of 87, respiratory rate of 20, oxygen saturation 90% on 3 L nasal cannula. Temperature 36.4. GENERAL: He is awake, alert, oriented, appropriate. No apparent distress. DATA: White blood cell count 8.74, hemoglobin 12.1, hematocrit 35.4, platelet count 104. Sodium 138, potassium 3.6, chloride 105, bicarb 22, BUN 17, creatinine 1.1. Glucose 91, calcium 8.2. N terminal proBNP 2380. Troponin less than 0.012. Patient did undergo a Lexiscan nuclear stress test on March 13, 2016, demonstrating normal perfusion and function. Echocardiogram done in my office, March 13, 2016, demonstrated mild left ventricular hypertrophy with LVEF of 60% to 65%. Right ventricular size and function were normal. Left and right atrial dimensions were mildly enlarged. Trace mitral regurgitation. Pulmonary acceleration time of 106 milliseconds consistent with mild pulmonary hypertension. ECG from September 19, 2016, at 1851 demonstrated supraventricular tachycardia at a rate of 162 beats per minute. Pacer interrogation from June 2016 demonstrates normal device function with 2 % atrial fibrillation burden. In review of his most recent pacer checks over the last 6 months, he has demonstrated paroxysmal atrial fibrillation up to a 5% burden. IMPRESSION: 1. Supraventricular tachycardia consistent with atrial flutter in the setting of a respiratory distress in the setting of pneumonia. 2. Hypoxemic respiratory failure, secondary to pneumonia. 3. History of paroxysmal atrial fibrillation, status post atrial fibrillation ablation coupled with left atrial closure device, December 2011. 4. Coronary artery disease with history of coronary artery bypass graft. 5. History of nonischemic cardiomyopathy. 6. Essential hypertension. In my last office visit with the patient in February 2016, we had a lengthy discussion regarding paroxysmal atrial fibrillation and his CHADs Vasc score of 5. We discussed in detail the risks and benefits of anticoagulation. We discussed that aspirin would provide a 22% relative risk in stroke risk reduction versus anticoagulation with novel anticoagulant of approximately 74% risk reduction in stroke. We did discuss that the left atrial appendage ligation would reduce his risk of stroke but unclear what percentage that risk would be decreased with appendage ligation. Back in February, he had opted to remain just on aspirin. I have again discussed in detail with the patient options for anticoagulation. He has opted to remain on aspirin 81 mg daily. I agree with the addition of diltiazem orally in the setting of atrial flutter with rapid ventricular response. I anticipate these events will occur with decreasing frequency with improvement in his respiratory status. PLAN: 1. Continue diltiazem extended release 120 mg once daily. 2. Continue aspirin 81 mg daily. 3. We will arrange for outpatient followup with the patient in the next 2 weeks. 45 minutes were spent coordinating care. /[id number]/MODL MTDD
[2016-09-21] MEDS: IPRATROPIUM/ALBUTEROL 3 ML DEYVIAL IH SCH (05:04)
[2016-09-21 07:50] VITALS: BP 135/91; PULSE 78; RESP 17; TEMP 97.5
[2016-09-21] MEDS: ATORVASTATIN CALCIUM 20 MG TAB PO SCH (09:19)
[2016-09-21] MEDS: guaiFENesin 600 MG TAB.ER PO SCH (09:19)
[2016-09-21] MEDS: TAMSULOSIN HCL 0.4 MG CAP PO SCH (09:19)
[2016-09-21] MEDS: predniSONE 20 MG TAB PO SCH (09:20)
[2016-09-21] MEDS: DILTIAZEM CD 120 MG CAP PO SCH (09:20)
[2016-09-21] MEDS: ASPIRIN 81 MG CHEWABLE TAB PO SCH (09:20)
[2016-09-21] MEDS: ENOXAPARIN 40 MG/0.4 ML SYR SC SCH (09:21)
[2016-09-21] MEDS: KETOROLAC 0.4% LEFTEYE SCH (09:23)
[2016-09-21] MEDS: POLYMYXIN B SULFATE/TMP 10 ML OPHT.BTL LEFTEYE SCH (09:23)
[2016-09-21] MEDS: prednisoLONE ACET 1% 5 ML OPHT.BTL LEFTEYE SCH (09:23)
[2016-09-21 10:17] VITALS: O2SAT 87
--- NOTE | 2016-09-21 11:42 | GPROG ---
[f rep st] PROGRESS NOTE SUBJECTIVE: He is feeling better today. He is still somewhat short of breath. He is not having chest pain or chest tightness. He has some shortness of breath when he is walking. He is having no jaw pain or arm pain. He is not having rapid heart beats. He is not having dizziness or lightheadedness. OBJECTIVE: VITAL SIGNS: Blood pressure 135/91, his heart rate is 78 and regular. His oxygen saturation is 87% on 3 L. NECK: Supple. CARDIOVASCULAR: S1, and S2. Systolic murmur at the left sternal border. No diastolic murmur. PULMONARY: Rhonchi bilaterally with some dullness. No wheezing. ABDOMEN: Soft. NEUROLOGIC: Intact. He is weak and using a walker. LAB: His white count is 8.64 with hematocrit of 35 on 09/19. On 09/19, sodium is 138, potassium 3.6, chloride 105, CO2 of 22, BUN 17 calcium 8.2, BNP is 2380 , troponin is negative. IMAGING: Chest x-ray on the shows mild peribronchiolar cuffing in the perihilar region, extending to both lung bases, suggestive of underlying bronchitis, viral process, or reactive airway disease. Mild prominent interstitial marking in the lung bases since prior studies. Could be dependent atelectasis versus improved edema. ASSESSMENT AND PLAN: 1. Atrial flutter. 2. Atrial fibrillation. 3. Refusal of anticoagulation. 4. Coronary artery disease. 5. Status post coronary artery bypass grafting, 2011. 6. Status post mitral valve annuloplasty, 2011. 7. Status post maze procedure. 8. Status post left atrial appendage ligation. 9. Permanent pacemaker. 10. Sick sinus syndrome. 11. Hyperlipidemia. 12. Lipids. The patient has been taking good care of himself. He has come down with pneumonia and now he has a supraventricular tachycardia consistent with atrial flutter, which has resolved. He is taking his calcium channel nataly. He has a very high CHADS-VASc score and he refuses and has in the past to take full anticoagulation, which would be strongly recommended to cut down the risk of stroke. He is aware of this benefit. He is aware of the drug. He is aware of our recommendation that is standard of care without a doubt and he is going to just take aspirin for his anticoagulation at this time. He has had a very careful evaluation back in February of 2016. He has a normal perfusion and normal LV systolic function on a nuclear scan as an outpatient and his echocardiogram done approximately at the same time shows an ejection fraction around 65% with some left ventricular hypertrophy, He is up and about and walking, not having problems, and would like to go home. He will follow up with the [facility], Cardiology Division. If he deteriorates in any way, he can get back to us right away. Otherwise, in the next day or so he should be cleared to go home. /[id number]/MODL MTDD
--- NOTE | 2016-09-21 11:51 | PDIAF ---
- Diagnosis Diagnosis: pneumonia Code Status: Do Not Resuscitate - Medication Management Discharge Medications: Medications to Continue on Transfer Atorvastatin Calcium [Lipitor 20 mg (*)] 20 mg PO DAILY 01/20/12 [Last Taken 07:00] Aspirin EC [Aspirin EC 81 mg (*)] 81 mg PO DAILY 09/16/16 [Last Taken 09/16/16 07:30] Ketorolac Tromethamine 1 drop LEFTEYE TID 09/16/16 [Last Taken 09/16/16 07:00] Polymyxin B Sulf/Trimethoprim [Polymyxin B-Tmp Eye Drops] 1 drop LEFTEYE TID [Last Taken 09/16/16 07:00] Tamsulosin HCl [Flomax 0.4 MG (*)] 0.8 mg PO DAILY 09/16/16 [Last Taken 07:30] prednisoLONE ACET 1% [Pred Forte 1% (*)] 1 drop LEFTEYE TID 09/16/16 [Last Taken 09/16/16 07:00] Diltiazem Cd [Cardizem ER 120 MG (*)] 120 mg PO DAILY #30 cap 09/21/16 [Last Taken Unknown] guaiFENesin [Mucinex 600 MG (*)] 1,200 mg PO BID #0 tab.er 09/21/16 [Last Taken Unknown] Discharge Medications: Refer to the Discharge Home Medication list for PRN reason. - Orders Services needed: Registered Nurse, Physical Therapy Diet Recommendation: no restrictions on diet Diet Texture: Regular Texture Diet - Follow Up Care Current Providers and Referrals: NONE *PRIMARY CARE P,. [Primary Care Provider] - As per Instructions
[2016-09-21] MEDS ORDERED: PNEUMOCOCCAL 0.5ML VACCINE VIAL IM ONE (12:00)
--- NOTE | 2016-09-21 12:21 | GDS ---
[f rep st] DISCHARGE SUMMARY DISCHARGE DIAGNOSES: 1. Acute respiratory failure. 2. Community-acquired pneumonia. 3. History of atrial flutter with a bout of paroxysmal supraventricular tachycardia while in the spital. 4. History of coronary artery disease. CONSULTANTS: Dr. Ross Contreras, [facility] Cardiology. HOSPITAL COURSE AND STAY BY PROBLEM: Acute respiratory failure in the setting of community-acquired pneumonia: The patient was admitted to the hospital where he was diagnosed with community-acquired pneumonia. Blood and sputum cultures were done that did not reveal any organisms. He has since re ceived 6 days of IV levofloxacin. On 09/19/2016, the patient had an episode of SVT and was subsequently transferred to the telemetry [facility] where he was started on a diltiazem drip. Cardiology was consulted. He had an echocardiogram d one on the . The patient is known to have paroxysmal atrial fibrillation. Dr. Contreras recommended anticoagulation for stroke risk reduction. However, the patient was not interested in this and req uested to be on aspirin alone. On day of discharge, the patient states he is feeling better with no fevers and improved shortness o f breath. He is still requiring supplemental oxygen. PHYSICAL EXAMINATION ON DISCHARGE: VITAL SIGNS: Blood pressure 135/91, pulse 78, respiratory rate 17, O2 saturation 95% on 3 L and 85% on room air. Temperature afebrile. GENERAL: No acute distres s. HEART: S1, S2. LUNGS: Clear. No wheezes, rales, or rhonchi. ABDOMEN: Soft. EXTREMITIES: No edema. PERTINENT LABORATORIES AND STUDIES: Chest x-ray done on 09/21/2016 did not reveal any signs of pulm onary edema or worsening pneumonia. Echocardiogram done on 09/20/2016: Refer to report. CT angio of the chest on 09/16/2016 was negative for PE. There was mild bibasilar subsegmental atelectasis. Refer to report for full details. DISCHARGE MEDICATIONS: Please refer to discharge medication reconciliation in [facility] for full det ails. Below is a preliminary list. New medication on hospital discharge: Cardizem ER 120 mg daily. All other home medications were continued at his usual home dosages. DISCHARGE INSTRUCTIONS: The patient was discharged with home care as well as home oxygen. He shoul d follow up with Dr. Contreras as instructed in 2 weeks. Greater than 30 minutes were spent on the discharge of this patient. /[id number]/MODL
== END 2016-09-21 12:15 | disposition home health service (06) | DRG 193 ==
LOC: OBSVTOIN 16:34 → F3E 17:13 → F2W 09-19 20:10
PROVIDERS: ADMIT Hospitalist; ATTEND Family Medicine
DX: J18.1 Lobar pneumonia, unspecified organism (principal); J96.01 Acute respiratory failure with hypoxia; I48.92 Unspecified atrial flutter; I48.91 Unspecified atrial fibrillation; I47.1 Supraventricular tachycardia; I25.10 Atherosclerotic heart disease of native coronary artery without angina pectoris; I10 Essential (primary) hypertension; E78.5 Hyperlipidemia, unspecified; Z95.1 Presence of aortocoronary bypass graft; Z95.0 Presence of cardiac pacemaker; Z23 Encounter for immunization
CPT/HCPCS: 86738-90; 87449-90; 96365; 97116-GP; 97161-GP; 97165-GO; 97535-GO; G0009; G8978-GP-CI; G8979-GP-CI; G8980-GP-CI; G8987-GO-CI; G8988-GO-CI; J1650; J1956; Q9967

== ENCOUNTER → 2016-10-15 | Outpatient (CLI) | payer OTHER | LOC: BMCIMAGING 10:40 | PROVIDERS: ATTEND Internal Medicine | DX: Z13.83 Encounter for screening for respiratory disorder NEC (principal) ==

== ENCOUNTER → 2016-10-31 | Outpatient (CLI) | payer OTHER | LOC: FIMAGING 09:40 | PROVIDERS: ATTEND Internal Medicine | DX: R91.8 Other nonspecific abnormal finding of lung field (principal); Z87.01 Personal history of pneumonia (recurrent) ==

== ENCOUNTER → 2017-07-25 | Outpatient (CLI) | payer OTHER | LOC: BMCIMAGING 14:02 | PROVIDERS: ATTEND Internal Medicine Cardiovascular Disease | DX: Z45.018 Encounter for adjustment and management of other part of cardiac pacemaker (principal) ==